=== PATIENT | female | born 1965 | race African-American/Black ===

== ENCOUNTER 2018-01-25 21:33 | Emergency (ER) | payer MEDICAID ==
[~2018-01-25] VITALS: Ht 160 cm; Wt 73.0 kg
[2018-01-26] MEDS ORDERED: CYCLOBENZAPRINE 10MG TABLET PO ONE (00:15)
[2018-01-26] MEDS ORDERED: IBUPROFEN 600MG TABLET PO ONE (00:15)
[2018-01-26 02:29] VITALS: BP 130/88
== END 2018-01-26 02:31 | disposition home or self-care (01) ==
LOC: ER 22:36
DX: S40.012A Contusion of left shoulder, initial encounter (principal); S20.219A Contusion of unspecified front wall of thorax, initial encounter; V49.09XA Driver injured in collision with other motor vehicles in nontraffic accident, initial encounter; Y93.89 Activity, other specified; Y92.89 Other specified places as the place of occurrence of the external cause; Y99.8 Other external cause status
CPT/HCPCS: 71046; 81025; 93005; 99284